=== PATIENT | female | born 1980 | race Caucasian/White ===

== ENCOUNTER 2017-07-31 16:31 | Emergency (ER) | payer OTHER, MEDICAID, SELFPAY ==
[2017-07-31 16:34] VITALS: BP 112/74; PULSE 88; RESP 16; TEMP 36.7; O2SAT 100; BMI 19.3
[2017-07-31 17:16] LABS: Bacteria Urine Few (2-10); Culture Indicated Urine Specimen Cultured; RBC Urine 1-5/HPF (0-5/HPF); Renal Epithelial Cells Urine 1-5/HPF; Squamous Epithelial Cell Urine None Seen; WBC Urine 10-30/HPF (0-5/HPF)
--- NOTE | 2017-07-31 17:34 | ED_ITS ---
HPI - Female Genitourinary <KAT Tong-BC - Last Filed: 07/31/17 17:47> General Chief complaint: Urogenital-Female Stated complaint: STATES UTI Time Seen by Provider: 07/31/17 17:20 Source: patient Mode of arrival: ambulatory Limitations: no limitations History of Present Illness HPI Narrative: Patient presents with complaint of dysuria, urgency and frequency since yesterday. She has history of UTIs and states this is a UTI. She denies flank pain, abdominal pain, fevers, nausea, vomiting or diarrhea. She denies any vaginal complaints including vaginal discharge or irritation. She denies abdominal pain. Related Data Previous Rx's Medication Instructions Recorded fluticasone-salmeterol [Advair 1 puff INH BIDRT #3 01/08/11 Diskus] ALBUTEROL (PROVENTIL INHALER) 0.09 mg IH QID #2 10/22/11 alprazolam 0 mg PO Q12HP #60 11/13/11 citalopram 20 mg PO QDAY #30 12/19/11 albuterol sulfate 3 ml INH X1 #1 ea 08/18/16 nitrofurantoin monohyd/m-cryst 1 cap PO Q12H 7 Days #14 cap 07/31/17 [Macrobid] Allergies Allergy/AdvReac Type Severity Reaction Status Date / Time aspirin [ASPIRIN] Allergy Unknown Verified 07/31/17 16:39 ibuprofen [IBUPROFEN] Allergy Unknown Verified 07/31/17 16:39 NSAIDS (Non-Steroidal Allergy Unknown Verified 07/31/17 16:39 Anti-Inflamma [NSAIDS (NON-STEROIDAL ANTI-INFLAMMA] Review of Systems <EVELIA Tong - Last Filed: 07/31/17 17:47> Review of Systems GENERAL: See HPI HEENT: Denies sinus pain, ear pain, sore throat, difficulty swallowing, dizziness. RESPIRATORY: Denies dyspnea, cough, wheezing, hemoptysis, sputum. CARDIOVASCULAR: Denies chest pain, palpitations, orthopnea, edema, GASTROINTESTINAL: See HPI : See HPI MUSCULOSKELETAL: denies weakness, joint pain, or bony pain SKIN: Denies rash, skin lesions, or other NEUROLOGIC: Denies weakness, headache, numbness, change in speech, confusion, seizures, incoordination. PSYCHIATRIC: No concerning psychosocial issues. 12 point review of systems is negative except for those stated above Exam <KAT Tong-BC - Last Filed: 07/31/17 17:47> Narrative Exam Narrative: GENERAL: This is a well-nourished, well-developed patient, in no acute distress sitting on bed. HEAD: Atraumatic. Normocephalic. No temporal or scalp tenderness. EYES: Pupils equal round and reactive. Extraocular motions intact. No scleral icterus. No injection or drainage. ENT: Nose without bleeding, purulent drainage or septal hematoma. Throat without erythema, tonsillar hypertrophy or exudate. Uvula midline. Airway patent. NECK: Trachea midline. No JVD or lymphadenopathy. Supple, nontender, no meningeal signs. CARDIOVASCULAR: Regular rate and rhythm without murmurs, gallops, or rubs. RESPIRATORY: Clear to auscultation. Breath sounds equal bilaterally. No wheezes , rales, or rhonchi. GASTROINTESTINAL: Abdomen soft, non-tender, nondistended. No hepato-splenomegaly , or palpable masses. No guarding. No suprapubic tenderness to palpation. EXTREMITIES: No clubbing, cyanosis, or edema. No joint tenderness, effusion, or edema noted. BACK: Nontender without deformity or crepitance. No flank tenderness. No CVA tenderness bilaterally. NEURO: AOx3. SKIN: No rash or erythema. Initial Vital Signs Initial Vital Signs: Vital Signs Temperature 98.1 F 07/31/17 16:34 Pulse Rate 88 07/31/17 16:34 Respiratory Rate 16 07/31/17 16:34 Blood Pressure 112/74 07/31/17 16:34 Pulse Oximetry 100 07/31/17 16:34 <Antoni Bui DO - Last Filed: 07/31/17 18:10> Initial Vital Signs Initial Vital Signs: Vital Signs Temperature 98.1 F 07/31/17 16:34 Pulse Rate 88 07/31/17 16:34 Respiratory Rate 16 07/31/17 16:34 Blood Pressure 112/74 07/31/17 16:34 Pulse Oximetry 100 07/31/17 16:34 Course <KAT Tong-BC - Last Filed: 07/31/17 17:47> Hospital Course: Patient presented with the UTI complaints including dysuria, urgency, frequency. Urinalysis dip indicated white blood cells as well as bacteria. Urine was sent for culture. Vital signs remained stable and patient remained pain-free throughout her stay in the emergency department. Orders Ordered: ED Orders 07/31/17 17:25 Urine Microscopic Stat Vital Signs - 8 hr 07/31/17 16:34 07/31/17 17:45 Temperature 98.1 F Pulse Rate 88 68 Respiratory Rate 16 16 Blood Pressure 112/74 111/78 Pulse Oximetry 100 99 <Antoni Bui DO - Last Filed: 07/31/17 18:10> Orders Ordered: ED Orders 07/31/17 17:25 Urine Microscopic Stat Vital Signs - 8 hr 07/31/17 16:34 07/31/17 17:45 Temperature 98.1 F Pulse Rate 88 68 Respiratory Rate 16 16 Blood Pressure 112/74 111/78 Pulse Oximetry 100 99 MDM - Female Genitourinary <KAT Tong-BC - Last Filed: 07/31/17 17:47> Differential Diagnosis Likely urinary tract infection and cystitis Lab Data Attestation: I reviewed the patient's lab results. Lab Results 07/31/17 Range/Units Unknown Urine RBC 1-5/hpf (0-5/HPF) Urine WBC 10-30/hpf H (0-5/HPF) Ur Squamous Epith Cells None seen Ur Renal Epithelial Cell 1-5/hpf Urine Bacteria Few (2-10) H (None) Ur Culture Indicated? Specimen cultured Micro UA Comment Not Reportable MDM Narrative Medical decision making narrative: Patient presents with dysuria, frequency, urgency. She has bacteria and white blood cells in her urine. Given her symptoms and exam I will treat her for urinary tract infection with Macrobid as per up-to-date recommendations. Urine culture is sent to ensure appropriate antibiotic use. <Antoni Bui, - Last Filed: 07/31/17 18:10> Lab Data Lab Results 07/31/17 Range/Units Unknown Urine RBC 1-5/hpf (0-5/HPF) Urine WBC 10-30/hpf H (0-5/HPF) Ur Squamous Epith Cells None seen Ur Renal Epithelial Cell 1-5/hpf Urine Bacteria Few (2-10) H (None) Ur Culture Indicated? Specimen cultured Micro UA Comment Not Reportable Discharge Plan Departure Patient Disposition: Home, Self-Care Clinical Impression: Urinary tract infection Discharge Date/Time: 07/31/17 17:46 Interventions: ED Discharge Assessment Last Done: 07/31/17 17:45 Instructions: DI for Urinary Tract Infection (UTI) Activity Restrictions/Additional Instructions: Your exam and urine dip indicates a urinary tract infection. I am starting on an antibiotic for this. I would like you to follow up with her primary care provider if he develops fever, flank pain, nausea vomiting or diarrhea. These are signs that the urinary tract infection is going to your kidneys, so you would need to be re-evaluated. Prescriptions: New nitrofurantoin monohyd/m-cryst [Macrobid] 100 mg capsule 1 cap PO Q12H 7 Days Qty: 14 RF: 0 No Action fluticasone-salmeterol [Advair Diskus] 500 MCG/50 MCG blister with device 1 puff INH BIDRT Qty: 3 RF: 1 ALBUTEROL (PROVENTIL INHALER) 0.09 mg IH QID Qty: 2 RF: 3 alprazolam 0.25 MG tablet PO Q12HP Qty: 60 RF: 0 citalopram 20 MG tablet 20 mg PO QDAY Qty: 30 RF: 2 albuterol sulfate 2.5 MG/3 ML solution for nebulization 3 ml INH X1 Qty: 1 RF: 0 <Antoni Bui DO - Last Filed: 07/31/17 18:10> Cosign ED Attending Dale Attestation: I was immediately available in the department for consultation. This documentation has been reviewed and I agree with assessment and plan. Supervised by Antoni Bui DO
[2017-07-31 17:45] VITALS: BP 111/78; PULSE 68; RESP 16; O2SAT 99
== END 2017-07-31 17:46 | disposition home or self-care (01) ==
PROVIDERS: Emergency Provider Nurse Practitioner Family
DX: N39.0 Urinary tract infection, site not specified (principal)
CPT/HCPCS: 36415; 81003; 81015; 81025; 87077; 87086; 87186; 99282; 99283

== ENCOUNTER 2018-03-31 13:41 | Emergency (ER) | payer OTHER, SELFPAY ==
[2018-03-31 13:42] VITALS: BP 132/89; PULSE 89; RESP 16; TEMP 36.2; O2SAT 100; BMI 21.5
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
== END 2018-03-31 16:52 | disposition home or self-care (01) ==
PROVIDERS: Emergency Provider Internal Medicine
DX: T24.201A Burn of second degree of unspecified site of right lower limb, except ankle and foot, initial encounter (principal); X12.XXXA Contact with other hot fluids, initial encounter
CPT/HCPCS: 99282

== ENCOUNTER 2018-09-24 11:58 | Emergency (ER) | payer OTHER, SELFPAY ==
[2018-09-24 12:06] VITALS: BP 110/75; PULSE 77; RESP 16; TEMP 36.9; BMI 20.6
--- NOTE | 2018-09-24 12:18 | ED_ITS ---
HPI - Female Genitourinary General Chief complaint: Urogenital-Female Stated complaint: Possible kidney infection Time Seen by Provider: 09/24/18 12:04 Source: patient Mode of arrival: ambulatory Limitations: no limitations History of Present Illness HPI Narrative: Patient is a 37-year-old female who presents with left flank pain ongoing for about 1 week. She did have some painful frequent urination for 1 day about a week ago nothing since then. She has also been having diarrhea ongoing for last 1 day she said she has had at least 5 episodes today. She denies final pain no fever no nausea no vomiting. She denies any injury to her back it is not radiating down to her leg. There is no radiation to her abdomen. Female Urogenital Radiation: L Flank Severity: mild Quality: Aching Related Data Previous Rx's Medication Instructions Recorded fluticasone propion-salmeterol 1 puff INH BIDRT #3 01/08/11 [Advair Diskus] ALBUTEROL (PROVENTIL INHALER) 0.09 mg IH QID #2 10/22/11 alprazolam 0 mg PO Q12HP #60 11/13/11 citalopram 20 mg PO QDAY #30 12/19/11 albuterol sulfate 3 ml INH X1 #1 ea 08/18/16 sulfamethoxazole-trimethoprim 1 tab PO BID #10 tab 09/24/18 [Bactrim DS] Allergies Allergy/AdvReac Type Severity Reaction Status Date / Time aspirin [ASPIRIN] Allergy Unknown Verified 03/31/18 13:42 ibuprofen [IBUPROFEN] Allergy Unknown Verified 03/31/18 13:42 NSAIDS (Non-Steroidal Allergy Unknown Verified 03/31/18 13:42 Anti-Inflamma [NSAIDS (NON-STEROIDAL ANTI-INFLAMMA] Review of Systems Review of Systems GENERAL: Denies chills, fatigue, malaise, fever, sweats, travel HEENT: Denies sinus pain, ear pain, sore throat, difficulty swallowing, neck pain RESPIRATORY: Denies dyspnea, cough, wheezing, hemoptysis, sputum. CARDIOVASCULAR: Denies chest pain, palpitations, orthopnea, edema GASTROINTESTINAL: See HPI : See HPI MUSCULOSKELETAL: Denies weakness, joint pain, or bony pain SKIN: No rash, no erythema, no pruritus NEUROLOGIC: Denies weakness, dizziness, headache, numbness, change in speech, confusion PSYCHIATRIC: No concerning psychosocial issues. 12 point review of systems is negative except for those stated above and HPI [facility] Medical History Atopic dermatitis (Chronic) Healthy female (Chronic) Surgical History No history of previous surgery (Chronic) Family History (Updated 03/31/18 @ 16:48 by Awilda Roach PA-C) Other Family history non-contributory Social History Smoking Status: Current every day smoker Family History Other Family history non-contributory Social History Smoking Status: Current every day smoker Exam Initial Vital Signs Initial Vital Signs: Vital Signs Temperature 98.5 F 09/24/18 12:06 Pulse Rate 77 09/24/18 12:06 Respiratory Rate 16 09/24/18 12:06 Blood Pressure 110/75 09/24/18 12:06 GENERAL: Well-appearing, well-nourished and in no acute distress. HEENT: Head atraumatic,EOMI, pupils reactive, face symmetric, moist mucous membranes CARDIOVASCULAR: Regular rate and rhythm without murmurs, rubs or gallops. RESPIRATORY: Breath sounds equal bilaterally, no wheezes rales or rhonchi. ABDOMEN: Soft, nontender. Normoactive bowel sounds all 4 quadrants. No guarding or rebound. : Left flank pain EXTREMITIES: Normal range of motion, no clubbing or edema. Neurovascularly intact NEUROLOGICAL: Alert and oriented x4.Normal gait and speech.hrough XII grossly intact. Good [id number], good [id number], strength equal bilaterally, no dysarthria or aphasia, sensation in tact to soft touch bilaterally, no visual changes, no facial droop SKIN: Warm, dry, no laceration, no petechiae, no rashes or lesions. Course Vital Signs - 8 hr 09/24/18 12:06 Temperature 98.5 F Pulse Rate 77 Respiratory Rate 16 Blood Pressure 110/75 MDM - Female Genitourinary Lab Data Attestation: I reviewed the patient's lab results. Point of Care Testing Test Results Negative Urine Dip Bedside Urine Glucose Negative Bedside Urine Bilirubin - Negative Bedside Urine Ketone - Negative Urine Specific [place] 1.015 Bedside Urine Occult Blood - Negative Bedside Urine pH 7.5 Bedside Urine Protein - Negative Bedside Urine Urobilinogen - Negative Bedside Urine Nitrite - Negative Bedside Urine Leukocytes - Negative Esterase MDM Narrative Medical decision making narrative: Urine is clean. Patient has a slight ache in her kidney it is not radiating at this time I do not believe it to be kidney stone. She has no injury to her back. She does have some diarrhea may be related to her flank pain. She has been having pain and discomfort ongoing for 1 week. Will give her antibiotics for 5 days I did discuss with her and may not help with her symptoms this may be unrelated. She does not appear septic or toxic. She seems very comfortable vitals are normal. At this time I see no indication for blood work or further testing. Discharge Plan Departure Patient Disposition: Home Clinical Impression: UTI (urinary tract infection) Qualifiers: Urinary tract infection type: acute pyelonephritis Qualified Code(s): N10 - Acute pyelonephritis Discharge Date/Time: 09/24/18 12:31 Interventions: ED Discharge Assessment Last Done: 09/24/18 12:30 Instructions: DI for Kidney Infection Activity Restrictions/Additional Instructions: *You have been diagnosed with kidney infection *What to do: Here urine is clear. Antibiotics may or may not help. Increase fluid as tolerated in regards to diarrhea. *Continue to take medications as directed Bactrim 1 tablet twice a day for 5 days *Follow up with your primary care provider in 2-3 days *Return to ER if you should have increasing flank pain blood in urine fevers abdominal pain vomiting or any new, worsening or concerning symptoms Prescriptions: New sulfamethoxazole-trimethoprim [Bactrim DS] 800-160 mg tablet 1 tab PO BID Qty: 10 RF: 0 No Action fluticasone propion-salmeterol [Advair Diskus] 500 MCG/50 MCG blister with device 1 puff INH BIDRT Qty: 3 RF: 1 ALBUTEROL (PROVENTIL INHALER) 0.09 mg IH QID Qty: 2 RF: 3 alprazolam 0.25 MG tablet PO Q12HP Qty: 60 RF: 0 citalopram 20 MG tablet 20 mg PO QDAY Qty: 30 RF: 2 albuterol sulfate 2.5 MG/3 ML solution for nebulization 3 ml INH X1 Qty: 1 RF: 0 Referrals: [facility] [Outside]
== END 2018-09-24 12:31 | disposition home or self-care (01) ==
LOC: ED 12:34
PROVIDERS: Emergency Provider Emergency Medicine
DX: N10 Acute pyelonephritis (principal)
CPT/HCPCS: 81003; 81025; 99282; 99283

== ENCOUNTER → 2024-05-21 11:30 | Outpatient (CLI) | payer OTHER, SELFPAY ==
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
== END ==
LOC: RAD 11:32
PROVIDERS: PCP Family Medicine; Referring Provider Family Medicine; Visit Provider Family Medicine
DX: N94.89 Other specified conditions associated with female genital organs and menstrual cycle (principal); Z97.5 Presence of (intrauterine) contraceptive device; M54.41 Lumbago with sciatica, right side; M54.42 Lumbago with sciatica, left side
CPT/HCPCS: 72170